=== PATIENT | male | born 1945 | race Caucasian/White ===

== ENCOUNTER 2017-02-02 19:34 | Inpatient (IN) | payer OTHER ==
[2017-02-02] MEDS ORDERED: Dextrose 50% 50 mL Abboject IVP STA (19:44)
[2017-02-02] MEDS ORDERED: Sodium Chloride 0.45% 500 ML IV ONE (19:46)
[2017-02-02] MEDS ORDERED: Dextrose 50% 50 mL Abboject IVP ONE (19:53)
[2017-02-02 20:04] LABS: % BASOPHILS 0.3 % (0.0-2.0); % EOSINOPHILS 11.9 % (0.0-5.0); % LYMPHOCYTES 25.4 % (20.0-50.0); % MONOCYTES 6.6 % (2.0-10.0); % NEUTROPHILS 55.8 % (40.0-80.0); HEMATOCRIT 30.4 % (39.0-49.0); HEMOGLOBIN 10.1 gm/dL (12.6-17.4); MEAN CELL VOLUME 81.3 fl (80-99); MEAN CORPUSCULAR HEMOGLOBIN 26.9 pg (27.0-31.0); MEAN CORPUSCULAR HGB CONC 33.1 pg (28.0-36.0); PLATELET COUNT 150 Th/cmm (150-400); RED BLOOD COUNT 3.74 Mil/cmm (3.80-5.80); RED CELL DISTRIBUTION WIDTH 13.4 % (11.5-20.0); WHITE BLOOD COUNT 7.3 Th/cmm (4.8-10.8)
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
[2017-02-02 20:13] LABS: ALB/GLOB RATIO 1.3 (1.0-1.8); ALKALINE PHOSPHATASE 62 U/L (34-104); ANION GAP 7.9 (7.0-16.0); BILIRUBIN,TOTAL 0.2 mg/dL (0.3-1.0); BUN - UREA NITROGEN 22 mg/dL (7-25); BUN/CREATININE RATIO 16.9; CALCIUM SERUM 9.4 mg/dL (8.6-10.3); CARBON DIOXIDE 27.9 mEq/L (21.0-31.0); CHLORIDE 104 mEq/L (98-107); CREATININE - SERUM 1.3 mg/dL (0.7-1.3); GLUCOSE 49 mg/dL (70-105); POTASSIUM SERUM 3.8 mEq/L (3.5-5.1); SGOT 19 U/L (13-39); SGPT/ALT 9 U/L (7-52); SODIUM SERUM 136 mEq/L (136-145)
[2017-02-02 20:14] LABS: CHOLESTEROL 122 mg/dL (<200); TRIGLYCERIDES 68 mg/dL (<150)
[2017-02-02 20:16] LABS: URINE BILIRUBIN NEGATIVE (NEGATIVE); URINE BLOOD TRACE (NEGATIVE); URINE COLOR YELLOW; URINE GLUCOSE (UA) NEGATIVE (NEGATIVE); URINE KETONE NEGATIVE (NEGATIVE); URINE PH 7.5
[2017-02-02 20:17] LABS: URINE PROTEIN NEGATIVE (NEGATIVE); URINE UROBILINOGEN 0.2 E.U./dL (0.2 - 1.0)
[2017-02-02 20:18] LABS: URINE BACTERIA FEW /hpf (NONE SEEN); URINE EPITHELIAL CELLS FEW /lpf (FEW); URINE RBC 0-2 /hpf (0-5)
[2017-02-02] MEDS ORDERED: cefTRIAXone 1 GM in Sodium Chloride 0.9% 50 ML IV ONE (20:20)
[2017-02-02 22:19] VITALS: BP 128/68
[2017-02-02] MEDS ORDERED: Hydrocodone/APAP 10 mg/325 mg Tab PO PRN (22:22)
[2017-02-02] MEDS ORDERED: Maalox 30 mL Cup PO PRN (22:22)
[2017-02-02] MEDS ORDERED: Hydrocodone/APAP 5mg/325mg Tab PO PRN (22:22)
[2017-02-02] MEDS ORDERED: Magnesium Hydroxide (MOM) 30 mL UDC PO PRN (22:22)
--- NOTE | 2017-02-03 00:26 | Admit Criteria Form ---
Admit Criteria Forms - Admit Criteria Diagnosis: DIABETES, HYPOGLYCEMIA Clinical Indications for Admission to Inpatient Care (Place 'X' for any and all applicable criteria): Admission is indicated for ALL of the following (1)(2)(3)(4)(5): [ X]I. Suspected or documented hypoglycemia (plasma glucose less than 50 mg/ dL (2.78 mmol/L)) with severe clinical manifestations or issues as indicated by ANY ONE of the following: [X ]a) Altered mental status (eg, coma, confusion) [ ]b) Seizure [ ]c) Ataxia [ ]d) Dysphasia [ ]e) Focal neurologic deficit(6) [ ]f) Severe weakness or fatigue [ ]g) Significant clinical signs or symptoms that do not resolve with treatment [ ]h) Hypoglycemia induced by ANY ONE of the following(7)(8)(9): [ ]i) Sulfonylurea(10) [ ]ii) Long-acting insulin (eg, half-life more than 6 hours ) (11) [ X]II. Management at other levels of care (See General Criteria: Observation Care) is not feasible because of ANY ONE of the following: [X ]a) Condition was not adequately corrected with treatment at other levels of care. [ ]b) Treatment at other levels of care is not appropriate because of condition severity (eg, coma). Extended stay beyond goal length of stay may be needed for(3)(12)(19): [ ]a) Long acting sulfonylurea-inducing hypoglycemia (10) [ ]b) Presentation in coma [ ]c) Identified etiology of hypoglycemia requires ongoing care (eg, infection ) [ ]d) Neurologic deficit [ ]e) Active serious comorbidities (eg, renal failure, heart failure) The original [employer] content created by [employer] has been revised. The portions of the content which have been revised are identified through the use of italic text or in bold, and [email or web address] has neither reviewed nor approved the modified material.All other unmodified content is copyright [facility]. Please see references footnoted in the original [facility] edition 2016 Admit Criteria Met?: Yes
[2017-02-03] MEDS: INSULIN ASPART SLIDING SCALE 100 UNITS/ML UNIT SUBQ SCH ×4 (06:54→21:30)
[2017-02-03 07:07] LABS: HEMATOCRIT 29.9 % (39.0-49.0); HEMOGLOBIN 10.2 gm/dL (12.6-17.4); MEAN CELL VOLUME 79.7 fl (80-99); MEAN CORPUSCULAR HEMOGLOBIN 27.1 pg (27.0-31.0); MEAN PLATELET VOLUME 9.1 fl; PLATELET COUNT 149 Th/cmm (150-400); RED BLOOD COUNT 3.75 Mil/cmm (3.80-5.80); RED CELL DISTRIBUTION WIDTH 13.1 % (11.5-20.0); WHITE BLOOD COUNT 7.3 Th/cmm (4.8-10.8)
[2017-02-03 07:26] LABS: ALB/GLOB RATIO 1.3 (1.0-1.8); ALKALINE PHOSPHATASE 60 U/L (34-104); ANION GAP 8.4 (7.0-16.0); BILIRUBIN,TOTAL 0.2 mg/dL (0.3-1.0); BUN - UREA NITROGEN 19 mg/dL (7-25); BUN/CREATININE RATIO 14.6; CALCIUM SERUM 9.4 mg/dL (8.6-10.3); CARBON DIOXIDE 32.4 mEq/L (21.0-31.0); CHLORIDE 103 mEq/L (98-107); CREATININE - SERUM 1.3 mg/dL (0.7-1.3); GLUCOSE 145 mg/dL (70-105); POTASSIUM SERUM 4.8 mEq/L (3.5-5.1); SGOT 15 U/L (13-39); SGPT/ALT 7 U/L (7-52); SODIUM SERUM 139 mEq/L (136-145)
[2017-02-03 09:43] LABS: ANISOCYTOSIS 1+; EOSINOPHIL 19 % (0-5); MICROCYTOSIS 1+; NEUTROPHILS 48 % (40-80); PLATELET ESTIMATE DECREASED PLATELETS (NORMAL); PLATELET MORPHOLOGY PLATELET CLUMPS SEEN (NORMAL); TOTAL CELLS COUNTED 100
[2017-02-03] MEDS ORDERED: Pneumococcal Vaccine 0.5 mL Vial IM ONE (10:00)
--- NOTE | 2017-02-03 11:03 | Diagnostic Imaging Report ---
CHEST X-RAY: AP view INDICATION: Congestion COMPARISON: None FINDINGS: Suboptimal lung volumes are seen with mild increased interstitial lung markings. No focal consolidation, pleural effusions or evidence of rory CHF. Borderline prominent heart is noted. Note that the patient is rotated. Degenerative changes of the spine are noted. IMPRESSION: Suboptimal lung volumes and mild increased interstitial lung markings, likely chronic. No evidence of rory CHF. No focal consolidation identified. Borderline prominent heart.
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
[2017-02-04] MEDS: INSULIN ASPART SLIDING SCALE 100 UNITS/ML UNIT SUBQ SCH ×2 (06:47→12:10)
[2017-02-04 07:00] LABS: HEMOGLOBIN 11.4 gm/dL (12.6-17.4); MEAN CELL VOLUME 79.7 fl (80-99); MEAN CORPUSCULAR HEMOGLOBIN 26.9 pg (27.0-31.0); MEAN CORPUSCULAR HGB CONC 33.7 pg (28.0-36.0); PLATELET COUNT 155 Th/cmm (150-400); RED BLOOD COUNT 4.24 Mil/cmm (3.80-5.80); RED CELL DISTRIBUTION WIDTH 13.6 % (11.5-20.0); WHITE BLOOD COUNT 7.1 Th/cmm (4.8-10.8)
[2017-02-04 07:17] LABS: HEMATOCRIT 33.8 % (39.0-49.0)
[2017-02-04] MEDS ORDERED: Levothyroxine 0.075 Mg Tab PO SCH (07:30)
[2017-02-04 07:34] LABS: MAGNESIUM 1.8 mg/dL (1.9-2.7); PHOSPHOROUS 4.8 mg/dL (2.5-5.0)
[2017-02-04 08:21] LABS: BAND NEUTROPHILE 2 % (0-10); EOSINOPHIL 28 % (0-5); MICROCYTOSIS 1+; NEUTROPHILS 41 % (40-80); PLATELET ESTIMATE ADEQUATE (NORMAL); PLATELET MORPHOLOGY NORMAL (NORMAL); TOTAL CELLS COUNTED 100
[2017-02-05 10:20] LABS: T3 FREE 2.5 pg/mL (2.0-4.4); T4 FREE 0.99 ng/dL (0.82-1.77)
== END 2017-02-04 13:59 | disposition home or self-care (01) | DRG 637 ==
LOC: ER 19:34 → TELE 20:45
PROVIDERS: ADMIT Preventive Medicine Preventive Medicine/Occupational Environmental Medicine; ATTEND Preventive Medicine Preventive Medicine/Occupational Environmental Medicine
DX: E11.65 Type 2 diabetes mellitus with hyperglycemia (principal); G93.41 Metabolic encephalopathy; N39.0 Urinary tract infection, site not specified; F03.90 Unspecified dementia, unspecified severity, without behavioral disturbance, psychotic disturbance, mood disturbance, and anxiety; D64.9 Anemia, unspecified; I10 Essential (primary) hypertension; E78.5 Hyperlipidemia, unspecified; E88.09 Other disorders of plasma-protein metabolism, not elsewhere classified
CPT/HCPCS: 36415-UA; 71010-TC; 80053-TC; 80061-TC; 81001-TC; 82306-90; 82607-90; 82948-90; 83735-TC; 84100-TC; 84439-90; 84443-TC; 84479-90; 84484-TC; 84550-TC; 85007-TC; 85025-TC; 85027-TC; 85652-TC; 86141-TC; 86592-TC; 87075-90; 87086-90; 87205-90; 90732; 93005; 96375; J0696; J1815; J7799; X6226; Z7610

== ENCOUNTER 2018-12-06 04:42 | Emergency (ER) | payer OTHER ==
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
[2018-12-06 05:41] LABS: % BASOPHILS 0.3 % (0.0-2.0); % EOSINOPHILS 5.4 % (0.0-5.0); % LYMPHOCYTES 41.2 % (20.0-50.0); % MONOCYTES 6.9 % (2.0-10.0); % NEUTROPHILS 46.2 % (40.0-80.0); EOSINOPHILE ABSOLUTE 0.3 Th/cmm (0.1-0.4); HEMATOCRIT 31.2 % (41.0-60); HEMOGLOBIN 10.2 gm/dL (12-16); LYMPHOCYTE ABSOLUTE 2.3 Th/cmm (1.5-3.0); MEAN CORPUSCULAR HEMOGLOBIN 26.5 pg (27.0-31.0); MEAN CORPUSCULAR HGB CONC 32.7 pg (28.0-36.0); MEAN PLATELET VOLUME 8.3 fl; MONOCYTE ABSOLUTE 0.4 Th/cmm (0.3-1.0); NEUTROPHILE ABSOLUTE 2.5 Th/cmm (1.8-8.0); PLATELET COUNT 152 Th/cmm (150-400); RED BLOOD COUNT 3.84 Mil/cmm (3.80-5.80); RED CELL DISTRIBUTION WIDTH 12.8 % (11.5-20.0); WHITE BLOOD COUNT 5.5 Th/cmm (4.8-10.8)
[2018-12-06 05:53] LABS: PROTHROMBIN TIME (TEST) 10.4 SECONDS (9.5-11.5)
[2018-12-06 05:56] LABS: ALB/GLOB RATIO 1.5 (1.0-1.8); ALBUMIN 3.7 gm/dL (4.2-5.5); ALKALINE PHOSPHATASE 58 U/L (34-104); ANION GAP 13.6 (7.0-16.0); BILIRUBIN,TOTAL 0.2 mg/dL (0.3-1.0); BUN - UREA NITROGEN 22 mg/dL (7-25); CALCIUM SERUM 8.7 mg/dL (8.6-10.3); CARBON DIOXIDE 28.1 mEq/L (21.0-31.0); CHLORIDE 99 mEq/L (98-107); CREATININE - SERUM 1.5 mg/dL (0.7-1.3); GLUCOSE 68 mg/dL (70-105); POTASSIUM SERUM 3.7 mEq/L (3.5-5.1); SGOT 20 U/L (13-39); SGPT/ALT 13 U/L (7-52); SODIUM SERUM 137 mEq/L (136-145); TOTAL PROTEIN,SERUM 6.2 gm/dL (6.0-8.3)
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
== END 2018-12-06 06:57 | disposition home or self-care (01) ==
LOC: ER 04:42
DX: S01.81XA Laceration without foreign body of other part of head, initial encounter (principal); E11.9 Type 2 diabetes mellitus without complications; I10 Essential (primary) hypertension; F03.90 Unspecified dementia, unspecified severity, without behavioral disturbance, psychotic disturbance, mood disturbance, and anxiety; W01.198A Fall on same level from slipping, tripping and stumbling with subsequent striking against other object, initial encounter; Y93.89 Activity, other specified; Y92.89 Other specified places as the place of occurrence of the external cause; Y99.8 Other external cause status
CPT/HCPCS: 12011; 36415-UA; 70450-TC; 80053-TC; 82948-90; 83036-90; 84443-TC; 84484-TC; 85025-TC; 85610-TC; 85730-TC; Z7502